=== PATIENT | male | born 1985 | race Caucasian/White ===

== ENCOUNTER 2019-11-23 11:13 | Emergency (ER) | payer SELFPAY ==
[2019-11-23 11:18] VITALS: BP 172/118; PULSE 89; RESP 20; TEMP 36.6; O2SAT 97; BMI 31.2
--- NOTE | 2019-11-23 11:27 | PC.NURSE ---
Patient reports that about 10 days ago he stopped his Subutex. Patient reports that he had been on this for several years. Patient states last night that he began to get chills, body aches, diarrhea and his heart beating fast.
--- NOTE | 2019-11-23 11:41 | W.ED.GENADLT ---
HPI - General Adult General: Chief complaint: General Medical Stated complaint: withdrawals Time Seen by Provider: 11/23/19 11:18 History of Present Illness: HPI narrative: Patient has been out of Subutex for about a week and now having withdrawal symptoms cannot afford the medication. He has a history of opioid addiction. Now having diarrhea muscle cramps complaint: Opioid withdrawal Onset (ago): day(s) Severity: moderate Quality: constant Associated symptoms: Reports nausea; Deny chest pain, dyspnea, headache(s), rash or vomiting Treatments prior to arrival: none Review of Systems Const: Denies: fever, chills or body aches Eyes: Denies: change in vision or blurry vision ENMT: Denies: throat pain or nasal congestion Card: Denies: chest pain or shortness of breath on exertion Resp: Denies: shortness of breath, productive cough or non-productive cough GI: Reports: nausea and diarrhea; Denies: abdominal pain or vomiting : Denies: difficulty urinating Musc: Reports: muscle cramps; Denies: extremity pain Skin/Breast: Denies: rash Neuro: Denies: headache Psych: Denies: anxiety or depression Nicko/Lymph: Denies: easy bruising PFSH ED PFSH: Social History Smoking and tobacco status: current every day smoker Physical Exam Const: COMMON NORMALS: no apparent distress, average body habitus and oriented x3 GENERAL APPEARANCE: anxious HENMT: COMMON NORMALS: normocephalic HEAD & SCALP: normal to inspection and normocephalic FACE & SINUS: normal facial exam Eye: COMMON NORMALS: conjunctivae normal GENERAL EYE: normal appearance of both eyes CONJUNCTIVA: Yes conjunctivae normal Neck/C-Spine: COMMON NORMALS: no JVD Chest: COMMONS NORMALS: inspection of chest normal Resp: COMMON NORMALS: normal respiratory effort and clear to auscultation bilaterally AUSCULTATION: clear to auscultation bilaterally Cardio: COMMON NORMALS: no JVD and regular rhythm RATE: tachycardic RHYTHM: regular rhythm GI: COMMON NORMALS: normal to inspection, nondistended, normoactive bowel sounds Extremity: COMMON NORMALS: normal to inspection and full ROM Neuro: COMMON NORMALS: oriented x3 Course Vital Signs: Vital signs: Vital Signs Temperature 98 F 11/23/19 11:18 Pulse Rate 89 03/04/20 11:18 Respiratory Rate 20 H 11/23/19 11:18 Blood Pressure 170/106 11/23/19 12:01 Pulse Oximetry 97 11/23/19 11:18 Discharge Plan Discharge Prescriptions: No Action No Known Home Medications RF: 0 Coding Level of Care Code ED Online Marketing Coordinator for Chg Fwd Exam Comprehensive
[2019-11-23 12:01] VITALS: BP 170/106
[2019-11-23] MEDS: diazePAM 5 mg Tablet PO (12:01)
[2019-11-23] MEDS: cloNIDine 0.1 mg Tablet PO (12:01)
[2019-11-23] MEDS: diphenoxylate/atropine Tablet 1 TAB PO (12:03)
[2019-11-23 12:55] VITALS: BP 138/93; PULSE 78; RESP 18; O2SAT 98
== END 2019-11-23 12:56 | disposition home or self-care (01) ==
PROVIDERS: Emergency Provider Nurse Practitioner Family; PCP Family Medicine
DX: F11.23 Opioid dependence with withdrawal (principal); R19.7 Diarrhea, unspecified; R11.0 Nausea; R25.2 Cramp and spasm; F17.200 Nicotine dependence, unspecified, uncomplicated
CPT/HCPCS: 99281; 99283

== ENCOUNTER 2020-04-24 23:39 | Emergency (ER) | payer SELFPAY ==
[2020-04-24 23:58] VITALS: BP 181/104; PULSE 91; RESP 16; TEMP 36.4; O2SAT 97; BMI 30.4
[2020-04-25] MEDS: HYDROcodone-acetaminophen 7.5-325 mg Tablet 1 TAB PO (00:09)
--- NOTE | 2020-04-25 00:09 | W.ED.DENTAL ---
HPI - Dental/Oral General: Chief complaint: Dental/Oral Stated complaint: dental pain Time Seen by Provider: 04/25/20 00:00 History of Present Illness: HPI Narrative: Patient is a 35-year-old male comes to the ED with dental pain. Patient has been having a left lower tooth pain for the past week. He has been using Orajel to try to help with pain. Denies fever chills or airway obstruction. Associated symptoms: Denies fever(s) or odynophagia Review of Systems Const: Denies: fever(s), chills or fatigue Eyes: Denies: change in vision or eye discomfort ENMT: Reports: dental pain; Denies: throat pain, odynophagia, nasal discharge or nasal congestion Card: Denies: chest pain, palpitations, edema, swelling of feet/ankles, dyspnea on exertion or orthopnea Resp: Denies: dyspnea, productive cough or non-productive cough GI: Denies: abdominal pain, nausea, vomiting, diarrhea, constipation or hematochezia : Denies: flank pain, difficulty urinating, dysuria or hematuria Musc: Denies: neck pain, back pain or extremity swelling Skin/Breast: Denies: rash or new lesions Neuro: Denies: headache(s), numbness in extremities or weakness in extremities PFSH ED PFSH: Social History Smoking and tobacco status: current every day smoker Physical Exam Const: COMMON NORMALS: patient oriented x3 HENMT: COMMON NORMALS: normocephalic HEAD & SCALP: normocephalic MOUTH: Normal oral and palatal mucosa present TEETH & GINGIVA: Yes caries (multiple dental caries throughout-tenderness at tooth #19 and 20.) and Yes gingiva abnormal edematous (Left lower mandible gingival edema.) and tender THROAT: posterior oropharynx normal and uvula midline Neck/C-Spine: COMMON NORMALS: supple GENERAL: Yes normal visual inspection Resp: COMMON NORMALS: normal respiratory effort, No retractions, No use of accessory muscles and clear to auscultation bilaterally AUSCULTATION: clear to auscultation bilaterally Cardio: COMMON NORMALS: regular rate, regular rhythm, S1 normal heart sound present, S2 normal heart sound present, No gallops present (Cardio), No clicks present (Cardio), No murmurs present (Cardio) and Peripheral pulses 2+ throughout RATE: regular rate RHYTHM: regular rhythm HEART SOUNDS: S1 normal heart sound present and S2 normal heart sound present PERIPHERAL PULSES: Peripheral pulses 2+ throughout GI: COMMON NORMALS: Normal to inspection, nondistended, normoactive bowel sounds present, Soft to palpation, non-tender and no masses PALPATION: Yes Soft to palpation : COMMON NORMALS: Yes no CVA tenderness BLADDER/KIDNEY EXAM: Yes no CVA tenderness Back/Pelvis: COMMON NORMALS: no CVA tenderness Extremity: COMMON NORMALS: normal to inspection Neuro: COMMON NORMALS: patient oriented x3 and moves all extremities Skin: COMMON NORMALS: no rashes or lesions noted GENERAL SKIN EXAM: no rashes or lesions noted and dry skin Course Vital Signs: Vital signs: Vital Signs Temperature 97.6 F 04/24/20 23:58 Pulse Rate 91 04/24/20 23:58 Respiratory Rate 16 04/24/20 23:58 Blood Pressure 181/104 04/24/20 23:58 Pulse Oximetry 97 04/24/20 23:58 MDM - Dental/Oral MDM Narrative: Medical decision making narrative: Patient is a 35-year-old male comes into the ED with dental pain. Patient was given a prescription for clindamycin and ibuprofen 800 mg and told to contact dentist tomorrow to set up an appointment for reevaluation. Patient understood and agreed with plan. Discharge Plan Discharge Patient Disposition: Home Clinical Impression: Pain due to dental caries Condition: Stable Prescriptions: New clindamycin HCl 150 mg capsule 300 mg PO QID 7 Days Qty: 56 RF: 0 ibuprofen 800 mg tablet 800 mg PO Q8H PRN (Reason: pain) Qty: 20 RF: 0 No Action clonidine HCl 0.1 mg tablet 0.1 mg PO QID Qty: 12 RF: 0 Valium 5 mg tablet 5 mg PO BID PRN (Reason: muscle spasm) Qty: 5 RF: 0 Lomotil 2.5-0.025 mg tablet 1 tab PO BID PRN (Reason: diarrhea) Qty: 6 RF: 0 Discharge Orders: Discharge Order (Routine); Ordered 04/25/20 Ordered By: Jerod Farfan Referrals: Marcin Portillo MD [Primary Care Provider] - Discharge Diet: Regular Discharge Activity: Increase activity as tolerated Patient Instructions: Dental Caries (ED), Toothache (ED) Activity Restrictions/Additional Instructions: Contact dentist tomorrow to set up an appointment for evaluation. Take medications as prescribed. Return to the ER or your medical provider if condition worsens. Please read and understand discharge instructions. If any questions, please ask. Discharge Date/Time: 04/25/20 00:26 Coding Level of Care Code ED Strategic Analyst for Ethan Fwrashmi Exam Comprehensive
[2020-04-25] MEDS: clindamycin 150 mg Capsule 300 MG PO (00:10)
== END 2020-04-25 00:26 | disposition home or self-care (01) ==
PROVIDERS: Emergency Provider Physician Assistant; PCP Family Medicine
DX: K02.9 Dental caries, unspecified (principal); F17.210 Nicotine dependence, cigarettes, uncomplicated
CPT/HCPCS: 12345; 99283

== ENCOUNTER 2022-02-09 22:51 | Emergency (ER) | payer SELFPAY ==
[2022-02-09 23:09] VITALS: BP 151/90; PULSE 75; RESP 18; TEMP 36.8; O2SAT 98; BMI 30.4
--- NOTE | 2022-02-09 23:16 | ED_ITS ---
HPI - Extremity Problem General: Chief complaint: Extremity Injury, Lower Stated complaint: R foot injury Time Seen by Provider: 02/09/22 22:59 History of Present Illness: Patient is a 36-year-old male comes to the ED with right foot injury. Injury occurred around 3 PM today. Patient says he was at work and dropped heavy object on his right foot. Patient says piece of equipment was approximately 75 pounds. It fell and hit the top midfoot. He has been having pain and swelling in foot since injury. He rates his pain a 5 out of 10 and it worsens with any weightbearing. Associated symptoms: Deny chest pain, fever(s) or rash Review of Systems Const: Denies: fever(s), chills or fatigue Eyes: Denies: change in vision or eye discomfort ENMT: Denies: throat pain, odynophagia, nasal discharge or nasal congestion Card: Denies: chest pain, palpitations, edema, swelling of feet/ankles, dyspnea on exertion or orthopnea Resp: Denies: dyspnea, productive cough or non-productive cough GI: Denies: abdominal pain, nausea, vomiting, diarrhea, constipation or hematochezia : Denies: flank pain, difficulty urinating, dysuria or hematuria Musc: Reports: extremity pain (Right foot) and extremity swelling (Right foot); Denies: neck pain or back pain Skin/Breast: Denies: rash or new lesions Neuro: Denies: headache(s), numbness in extremities or weakness in extremities PFS ED PFSH: Medical History No pertinent family history Surgical History No pertinent past surgical history Social History Smoking and tobacco status: current every day smoker Physical Exam Const: COMMON NORMALS: patient oriented x3 and alert GENERAL APPEARANCE: cooperative HENMT: COMMON NORMALS: normocephalic HEAD & SCALP: normocephalic MOUTH: Normal oral and palatal mucosa present THROAT: posterior oropharynx normal and uvula midline Neck/C-Spine: COMMON NORMALS: supple GENERAL: Yes normal visual inspection Resp: COMMON NORMALS: normal respiratory effort, No retractions, No use of accessory muscles and clear to auscultation bilaterally AUSCULTATION: clear to auscultation bilaterally Cardio: COMMON NORMALS: regular rate, regular rhythm, S1 normal heart sound present, S2 normal heart sound present, No gallops present (Cardio), No clicks present (Cardio), No murmurs present (Cardio) and Peripheral pulses 2+ throughout RATE: regular rate RHYTHM: regular rhythm HEART SOUNDS: S1 normal heart sound present and S2 normal heart sound present PERIPHERAL PULSES: Peripheral pulses 2+ throughout GI: COMMON NORMALS: Normal to inspection, nondistended, normoactive bowel sounds present, Soft to palpation, non-tender and no masses PALPATION: Yes Soft to palpation : COMMON NORMALS: Yes no CVA tenderness BLADDER/KIDNEY EXAM: Yes no CVA tenderness Back/Pelvis: COMMON NORMALS: no CVA tenderness Extremity: NARRATIVE EXTREMITY EXAM: Right foot?no visible deformity noted. He has extensive swelling and some ecchymosis around the midfoot region. Limited range of motion due to pain. Neurovascular intact. No damage to nail or nailbed of digits. Neuro: COMMON NORMALS: patient oriented x3 and moves all extremities SENSORIUM/ORIENTATION: Yes alert Skin: GENERAL SKIN EXAM: dry skin Course Vital Signs: Vital signs: Vital Signs Temperature 98.2 F 02/09/22 23:09 Pulse Rate 75 02/09/22 23:09 Respiratory Rate 18 02/09/22 23:09 Blood Pressure 151/90 02/09/22 23:09 Pulse Oximetry 98 02/09/22 23:09 MDM - Extremity (Nontraumatic) Medical Decision Making Patient is a 37-year-old male comes to the ED with right foot injury. He had pork earlier today he dropped a 75pound object onto his midfoot. Exam of right foot shows no visible deformity. He has significant swelling in his midfoot region with some ecchymosis as well. Neurovascular tact distally. No nail or nailbed damage seen. X-rays of right foot and ankle showed no acute fractures, but there was significant swelling seen on x-ray. Due to patient's mechanism of injury and clinical exam I am suspicious of a fracture. Patient was put in a posterior leg splint and given crutches. I placed an order with case management for patient referred to Dr. Awad for possible foot fracture. He was discharged home with a prescription for hydrocodone for pain. Return to ED precautions given. Patient was told case management should contact them in the next couple days to set up an appointment with Dr. Awad. Patient understood and agreed with plan. Lab Data Radiology Impressions Foot X-Ray 02/09/22 23:16 IMPRESSION: Negative for acute osseous injury. Ankle X-Ray 02/09/22 23:44 IMPRESSION: No acute osseous findings. Discharge Plan Discharge Patient Disposition: Home Clinical Impression: Foot fracture, right Qualifiers: Encounter type: initial encounter Fracture type: closed Qualified Code(s): S92.901A - Unspecified fracture of right foot, initial encounter for closed fracture Condition: Stable Prescriptions: No Action clonidine HCl 0.1 mg tablet 0.1 mg PO QID Qty: 12 0RF Valium 5 mg tablet 5 mg PO BID PRN (Reason: muscle spasm) Qty: 5 0RF Lomotil 2.5-0.025 mg tablet 1 tab PO BID PRN (Reason: diarrhea) Qty: 6 0RF ibuprofen 800 mg tablet 800 mg PO Q8H PRN (Reason: pain) Qty: 20 0RF Discharge Orders: Discharge ED (Routine); Ordered 02/10/22 Ordered By: Jerod Farfan Referrals: Marcin Portillo MD [Primary Care Provider] - Discharge Diet: Regular Discharge Activity: Limit activity as instructed and Use walker/crutches as instructed Activity Restrictions/Additional Instructions: Follow-up with medical provider as directed. Case management should be contacting you in the next several days to set up an appointment with the microarray operations vice president Dr. Awad for follow-up. Limit weightbearing and use crutches to help with ambulation until cleared by Dr. Awad. Take medications as prescribed. Return to the ER or your medical provider if condition worsens. Please read and understand discharge instructions. Thank you for choosing [facility] for your healthcare needs today. Please realize this is an emergency room and that we are providing you with a medical screening exam and this may not be complete and all inclusive of all the testing and or work up that you may need to determine your ailment or severity of your illness. It is very important that you follow up as instructed or that you return to the Emergency Department should you have concerns or if your condition changes or worsens in any way. Stand Alone Forms: Work/School Release Coding Level of Care Code ED Rocket Engine Tester for Ethan Fwd Exam Comprehensive
--- NOTE | 2022-02-09 23:16 | XRR_ITS ---
PROCEDURE INFORMATION: Exam: XR Right Foot Exam date and time: 02/09/2022 11:30 PM Age: 36 years old Clinical indication: Injury or trauma; Other: Dropped heavy object on RT foot; Blunt trauma; Right; Additional info: Dropped heavy object on foot TECHNIQUE: Imaging protocol: XR Right foot. Views: 3 or more views. COMPARISON: No relevant prior studies available. FINDINGS: Bones/joints: Normal. Soft tissues: Diffuse dorsal side soft tissue swelling. XR/XR foot RT min 3V* [id number] IMPRESSION: Negative for acute osseous injury.
--- NOTE | 2022-02-09 23:44 | XRR_ITS ---
PROCEDURE INFORMATION: Exam: XR Right Ankle Exam date and time: 02/10/2022 12:00 AM Age: 37 years old Clinical indication: Injury or trauma; Other: Dropped heavy object on foot; Edema; Yes, it is localized; Blunt trauma; Ankle and foot; Right; Additional info: Dropped heavy object on foot/ankle. TECHNIQUE: Imaging protocol: XR Right ankle. Views: 3 or more views. COMPARISON: CR (LOW EXM, ) 02/09/2022 11:30 PM FINDINGS: Bones/joints: Normal. Soft tissues: Diffuse soft tissue swelling. XR/XR ankle RT min 3V* [id number] IMPRESSION: No acute osseous findings.
[2022-02-10] MEDS: HYDROcodone-acetaminophen 7.5-325 mg Tablet 1 TAB PO (00:51)
--- NOTE | 2022-02-13 06:05 | DCPLANNER ---
Addendum entered by Nay Mariee 02/28/22 06:04: Patient had a follow up appointment scheduled for 02.18.[address] Awad at ortho - patient did attend appointment. Addendum entered by Nay Mariee 02/16/22 09:23: Patient has a follow up appointment scheduled for Friday, February 18, 2022 at 8:[address] Awad at ortho. Clinic will call patient with appointment information. Original Note: load manager had message to schedule a follow up appointment for patient with ortho. load manager sent patients information to the front office staff at ortho. Patients information will be printed and reviewed. Clinic will call patient with patients information.
== END 2022-02-10 00:54 | disposition home or self-care (01) ==
PROVIDERS: Emergency Provider Physician Assistant; PCP Family Medicine
DX: S99.922A Unspecified injury of left foot, initial encounter (principal); W22.8XXA Striking against or struck by other objects, initial encounter
CPT/HCPCS: 29515; 73610; 73630; 99283; E0114

== ENCOUNTER → 2022-02-18 08:53 | Outpatient (BNVA) | payer SELFPAY | PROVIDERS: PCP Family Medicine; Referring Provider Physician Assistant; Visit Provider Podiatrist Foot & Ankle Surgery | DX: M79.671 Pain in right foot (principal) | CPT/HCPCS: 73630 ==

== ENCOUNTER 2022-02-18 11:34 | Outpatient (CLI) | payer SELFPAY | END 2022-02-18 11:35 | disposition home or self-care (01) | LOC: SPT 11:34 | PROVIDERS: PCP Family Medicine; Visit Provider Podiatrist Foot & Ankle Surgery | DX: Z46.89 Encounter for fitting and adjustment of other specified devices (principal); S97.81XD Crushing injury of right foot, subsequent encounter; S90.31XD Contusion of right foot, subsequent encounter; X58.XXXD Exposure to other specified factors, subsequent encounter | CPT/HCPCS: 97760; L4361 ==

== ENCOUNTER 2022-08-24 14:37 | Emergency (ER) | payer SELFPAY ==
[2022-08-24 15:10] VITALS: BP 144/110; PULSE 81; RESP 16; TEMP 35.8; O2SAT 96
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
[2022-08-24] MEDS: orphenadrine 30 mg/mL Inj 2 mL 60 MG IM (17:01)
[2022-08-24] MEDS: dexamethasone 10 mg/mL INJ IM (17:01)
[2022-08-24 17:25] VITALS: PULSE 73; RESP 16; O2SAT 98
== END 2022-08-24 17:26 | disposition home or self-care (01) ==
PROVIDERS: Emergency Provider Physician Assistant; PCP Family Medicine
DX: M54.50 Low back pain, unspecified (principal)
CPT/HCPCS: 72100; 96372; 99284; J1100; J2360

== ENCOUNTER → 2024-05-17 09:17 | Outpatient (BNVA) | payer OTHER, SELFPAY | PROVIDERS: PCP Family Medicine; Visit Provider Student in an Organized Health Care Education/Training Program | DX: M17.11 Unilateral primary osteoarthritis, right knee (principal); Z98.890 Other specified postprocedural states | CPT/HCPCS: 73560; 73565 ==

== ENCOUNTER 2024-05-17 10:06 | Outpatient (CLI) | payer OTHER, SELFPAY | END 2024-05-17 10:07 | disposition home or self-care (01) | LOC: SPT 10:08 | PROVIDERS: PCP Family Medicine; Visit Provider Student in an Organized Health Care Education/Training Program | DX: Z46.89 Encounter for fitting and adjustment of other specified devices (principal); M17.11 Unilateral primary osteoarthritis, right knee | CPT/HCPCS: 97760; L1812 ==